=== PATIENT | male | born 1985 | race American Indian/Alaskan Native ===

== ENCOUNTER 2018-09-14 19:36 | Emergency (ER) | payer OTHER ==
[2018-09-14 19:55] VITALS: BP 144/77; PULSE 75; RESP 18; TEMP 98.4; O2SAT 98
[2018-09-14] MEDS ORDERED: Lidocaine 1% Inj (20ml) INFIL STA (20:04)
[2018-09-14] MEDS ORDERED: Lidocaine 2% MPF (5 ml) Inj ONE (20:13)
[2018-09-14] MEDS ORDERED: Tdap Vaccine 0.5 ml Vial (10-64 yrs) IM ONE (20:13)
[2018-09-14] MEDS: Tdap Vaccine 0.5 ml Vial (10-64 yrs) IM ONE (20:22)
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
== END 2018-09-14 20:34 | disposition home or self-care (01) ==
LOC: C.ER 19:36
DX: S01.511A Laceration without foreign body of lip, initial encounter (principal); Y04.0XXA Assault by unarmed brawl or fight, initial encounter; Z23 Encounter for immunization